=== PATIENT | female | born 1960 | race Caucasian/White ===

== ENCOUNTER 2023-07-28 07:00 | Outpatient (OUT) | payer MEDICARE, BC, SELFPAY ==
[2023-07-28 08:10] LABS: Alanine Aminotransferase 25 U/L (14-59); Alkaline Phosphatase 112 U/L (46-116); Anion Gap 14.9; Aspartate Amino Transferase 16 U/L (15-37); BUN Creatinine Ratio 14.9; Bilirubin Total 0.5 mg/dL (0.2-1.0); Calcium 9.7 mg/dL (8.5-10.1); Carbon Dioxide 24.3 mmol/L (21.0-32.0); Chloride 103 mmol/L (98-107); Estimated GFR (African America >60 (>=60); Estimated GFR (Non-African Ame >60 (>=60); Glucose 117 mg/dL (74-106); Potassium 4.2 mmol/L (3.5-5.1); Sodium 138 mmol/L (136-145); Thyroid Stimulating Hormone 1.462 uIU/mL (0.358-3.740)
[2023-07-29 04:07] LABS: Triiodothyronine (T3) 151 ng/dL (71-180)
[2023-07-30 16:08] LABS: ACTH, Plasma 2.3 pg/mL (7.2-63.3)
== END 2023-07-28 07:01 | disposition home or self-care (01) ==
LOC: LAB 07:05
PROVIDERS: PCP Nurse Practitioner Family; Visit Provider Nurse Practitioner Family
DX: E11.69 Type 2 diabetes mellitus with other specified complication (principal); E78.2 Mixed hyperlipidemia; I81 Portal vein thrombosis; K21.9 Gastro-esophageal reflux disease without esophagitis; E66.01 Morbid (severe) obesity due to excess calories; R79.89 Other specified abnormal findings of blood chemistry
CPT/HCPCS: 36415; 80053; 80299; 82024; 82306; 82533; 82607; 82627; 84436; 84443; 84480